=== PATIENT | male | born 1945 | race Caucasian/White ===

== ENCOUNTER 2023-08-18 10:50 | Outpatient (CLI) | payer MEDICARE, SELFPAY ==
--- NOTE | ~2023-08-18 | MR_ITS ---
Procedure: MR lumbar spine wo con Ordering provider: Jojo Healy, History: . LUMBAR RADICULOPATHY . Comparison: None. Technique: MRI lumbar spine without contrast. FINDINGS: SPINAL CORD: Normal. VERTEBRAL BODIES: Normal height and alignment. No compression fracture. Normal marrow signal. DISK SPACES: Narrowing of all the disc spaces of the lumbar area is noted. Mild diffuse disc bulge with osteophytes at the level of L1-L2. Mild diffuse disc bulge with osteophytes at the level of C3-C4. Diffuse disc bulge with osteophytes at the level of L4-L5. Cystic areas seen in the right side of the spinal canal which may be due to skeletal cyst thickening of the ligamenta flava is seen at the same level Disc protrusion with narrowing of the left foramina and nerve root compression seen at the level of L 5-S1. Annulus fissure is also seen. STENOSIS: None. PARASPINOUS SOFT TISSUES: Soft tissue mass is seen in the area of the right psoas muscle with bright signal on T2-weighted images and extending into the right paraspinal area and posteriorly. Sarcoma is possible. Further evaluation advised. IMPRESSION: No compression fracture or stenosis of the lumbar spine. Soft tissue mass measuring 11 x 4 cm anteriorly and 4.16 x 2.9 cm is seen in the area of the right ps oas muscle with bright signal on T2-weighted images and extending into the right paraspinal area and posteriorly. Sarcoma is possible. The mass is extending into multiple foramina on the right side. Fur ther evaluation advised. Myositis is less likely. Multilevel degenerative disc disease with variable degrees of intervertebral foraminal narrowing. Reviewed, dictated and finalized at location A. IMPRESSION: No compression fracture or stenosis of the lumbar spine. Soft tissue mass measuring 11 x 4 cm anteriorly and 4.16 x 2.9 cm is seen in th e area of the right psoas muscle with bright signal on T2-weighted images and e xtending into the right paraspinal area and posteriorly. Sarcoma is possible. T he mass is extending into multiple foramina on the right side. Further evaluati on advised. Myositis is less likely. Multilevel degenerative disc disease with variable degrees of intervertebral fo raminal narrowing.
== END 2023-08-18 10:51 ==
LOC: MICIMG 10:52
PROVIDERS: PCP Family Medicine; Visit Provider Family Medicine
DX: M54.16 Radiculopathy, lumbar region (principal); G95.9 Disease of spinal cord, unspecified; M51.36 Other intervertebral disc degeneration, lumbar region
CPT/HCPCS: 72148